=== PATIENT | female | born 1950 | race Caucasian/White ===

== ENCOUNTER 2017-09-24 14:21 | Inpatient (IN) | payer MEDICARE, OTHER ==
[~2017-09-24] VITALS: Ht 165.1 cm; Wt 92.2 kg
[2017-09-24 15:00] LABS: BASOPHILS # (AUTO) 0.02 x10^3/uL (0-0.1); BASOPHILS % (AUTO) 0 % (0-1); EOSINOPHILS # (AUTO) 0.02 x10^3/uL (0-0.4); EOSINOPHILS % (AUTO) 0 % (1-7); LYMPHOCYTES # (AUTO) 0.45 x10^3/uL (1-3.4); LYMPHOCYTES % (AUTO) 6 % (22-44); MD NO; MEAN CORPUSCULAR HEMOGLOBIN 33.1 pg (27.0-34.8); MEAN CORPUSCULAR HGB CONC 34.4 g/dL (32.4-35.8); MEAN CORPUSCULAR VOLUME 96.3 fL (80-100); MEAN PLATELET VOLUME 8.1 fL (7.4-10.4); MONOCYTES # (AUTO) 0.11 x10^3/uL (0.2-0.8); MONOCYTES % (AUTO) 1 % (2-9); NEUTROPHILS # (AUTO) 7.54 x10^3/uL (1.8-6.8); NEUTROPHILS % (AUTO) 93 % (42-75); PLATELET COUNT 239 x10^3/uL (130-400); RED BLOOD COUNT 4.17 x10^6/uL (3.82-5.3); RED CELL DISTRIBUTION WIDTH 14.7 % (9.6-15.2)
[2017-09-24] MEDS ORDERED: SODIUM CHLORIDE 0.9% 1,000ML IVBOLUS ONE (15:00)
[2017-09-24] MEDS ORDERED: SODIUM CHLORIDE FLUSH 10ML SYR IVF ONE (15:00)
[2017-09-24 15:13] LABS: ALANINE AMINOTRANSFERASE 26 U/L (12-78); ANION GAP 9 mmol/L (5-15); CALCIUM 7.9 mg/dL (8.5-10.1); CHLORIDE 107 mmol/L (98-107); CREATININE 1.06 mg/dL (0.55-1.02)
[2017-09-24 15:17] LABS: ALKALINE PHOSPHATASE 58 U/L (45-117); BILIRUBIN,TOTAL 0.2 mg/dL (0.2-1.0); TOTAL PROTEIN 5.9 g/dL (6.4-8.2); TROPONIN I 0.034 ng/mL (0.000-0.045)
[2017-09-24] MEDS: SODIUM CHLORIDE 0.9% 1,000 ML IV SCH (16:59)
[2017-09-24] MEDS ORDERED: ONDANSETRON 2MG/ML, 2ML IVPush PRN (17:00)
[2017-09-24] MEDS ORDERED: HYDROcodone/APAP 5/325 TABLET PO ONE (17:00)
[2017-09-24] MEDS ORDERED: methylPREDNISolone SOD SUCC 125 MG/2 ML IVPush PRN (17:00)
[2017-09-24] MEDS ORDERED: HYDROcodone/APAP 5/325 TABLET ONE (17:01)
[2017-09-24] MEDS ORDERED: methylPREDNISolone SOD SUCC 125 MG/2 ML ONE (18:30)
[2017-09-24 21:03] VITALS: BP 101/69
[2017-09-24 22:01] VITALS: BP 101/69
[2017-09-25] MEDS: ONDANSETRON ODT 4 MG PO PRN ×2 (00:48→20:29)
[2017-09-25 02:02] VITALS: BP 101/67
[2017-09-25 05:32] LABS: MEAN CORPUSCULAR HEMOGLOBIN 32.6 pg (27.0-34.8); MEAN CORPUSCULAR HGB CONC 33.6 g/dL (32.4-35.8); MEAN PLATELET VOLUME 8.4 fL (7.4-10.4); PLATELET COUNT 230 x10^3/uL (130-400); RED BLOOD COUNT 3.99 x10^6/uL (3.82-5.3); RED CELL DISTRIBUTION WIDTH 14.6 % (9.6-15.2)
[2017-09-25 05:34] LABS: ANION GAP 7 mmol/L (5-15); CALCIUM 8.5 mg/dL (8.5-10.1); CHLORIDE 110 mmol/L (98-107); CREATININE 0.99 mg/dL (0.55-1.02)
[2017-09-25] MEDS ORDERED: DULO20CA17 PO (05:36)
[2017-09-25] MEDS ORDERED: CARV6.25 PO (05:36)
[2017-09-25] MEDS ORDERED: SIMV10TA3 PO (05:36)
[2017-09-25] MEDS ORDERED: PRED5DRO15 EACHEYE (05:36)
[2017-09-25] MEDS ORDERED: LEVO75TA76 PO (05:40)
[2017-09-25] MEDS ORDERED: DULO60CA55 PO (05:40)
[2017-09-25 05:56] LABS: BASOPHILS % (AUTO) 0 % (0-1); EOSINOPHILS % (AUTO) 0 % (1-7); LYMPHOCYTES # (AUTO) 0.42 x10^3/uL (1-3.4); LYMPHOCYTES % (AUTO) 5 % (22-44); MD SCAN; MONOCYTES # (AUTO) 0.05 x10^3/uL (0.2-0.8); MONOCYTES % (AUTO) 1 % (2-9); NEUTROPHILS # (AUTO) 8.52 x10^3/uL (1.8-6.8); NEUTROPHILS % (AUTO) 95 % (42-75)
[2017-09-25 07:10] VITALS: BP 98/59
[2017-09-25] MEDS: SODIUM CHLORIDE 0.9% 1,000 ML IV SCH ×2 (09:47→21:44)
[2017-09-25 13:42] VITALS: BP 105/66
[2017-09-25] MEDS: DULOXETINE 30 MG CAPSULE.DR PO SCH (14:52)
[2017-09-25] MEDS: LEVOTHYROXINE 75 MCG TABLET PO SCH (14:52)
[2017-09-25 20:04] VITALS: BP 118/71
[2017-09-25] MEDS: DIPHENHYDRAMINE 50 MG/ML, 1ML IVPush PRN (20:27)
[2017-09-25] MEDS ORDERED: SIMVASTATIN 10 MG TABLET PO SCH (21:00)
[2017-09-26 01:32] VITALS: BP 129/83
[2017-09-26] MEDS: DIPHENHYDRAMINE 50 MG/ML, 1ML IVPush PRN (01:43)
[2017-09-26] MEDS: LEVOTHYROXINE 75 MCG TABLET PO SCH (05:50)
[2017-09-26 08:00] VITALS: BP 123/81
[2017-09-26] MEDS: DULOXETINE 30 MG CAPSULE.DR PO SCH (08:41)
[2017-09-26] MEDS ORDERED: REGADENOSON 0.4 MG/5 ML SYRINGE ONE (09:15)
[2017-09-26] MEDS ORDERED: GUAIFENESIN ER 600 MG TABLET PO PRN (10:30)
[2017-09-26 13:42] VITALS: BP 122/77
== END 2017-09-26 18:00 | disposition home or self-care (01) | DRG 916 ==
LOC: ED 16:18 → EDIP 16:19 → INTOOBSV 16:19 → ED 16:52 → 4WST 19:50 → OBSVTOIN 09-26 12:34
PROVIDERS: ADMIT Internal Medicine; ATTEND Internal Medicine
DX: T88.6XXA Anaphylactic reaction due to adverse effect of correct drug or medicament properly administered, initial encounter (principal); E87.2 Acidosis; I95.9 Hypotension, unspecified; E03.9 Hypothyroidism, unspecified; E55.9 Vitamin D deficiency, unspecified; E78.5 Hyperlipidemia, unspecified; G89.29 Other chronic pain; H20.10 Chronic iridocyclitis, unspecified eye; J98.01 Acute bronchospasm; M19.90 Unspecified osteoarthritis, unspecified site; R09.02 Hypoxemia; Z96.653 Presence of artificial knee joint, bilateral; M06.9 Rheumatoid arthritis, unspecified; Z88.6 Allergy status to analgesic agent; T36.1X5A Adverse effect of cephalosporins and other beta-lactam antibiotics, initial encounter
CPT/HCPCS: 36415; 71045; 78452; 80048; 80053; 83605; 84484; 85025; 85379; 93005; 93017; 93306; 96374; G0378; J2785; Q0162; A9502; C9898; J1200; J2930; J7030